=== PATIENT | female | born 1990 | race Caucasian/White ===

== ENCOUNTER 2018-01-13 14:18 | Emergency (ER) | payer OTHER ==
[2018-01-13 14:18] VITALS: BMI 36.9
[2018-01-13 14:29] VITALS: BP 104/70; PULSE 64; RESP 18; TEMP 97.9; O2SAT 99
--- NOTE | 2018-01-13 15:15 | C.PDOC ---
History Of Present Illness 27 y/o female w/o significant PMHx presents to ED for evaluation of cold sx for past weeks associated with nasal congestion, runny nose. Pt reports, developed intermittent frontal headache for "few days". Patient sts, this morning she developed bilateral earache. Otherwise, pt denies high fever, chills, ear discharge, drooling, dysphagia, dyspnea, cough, CP, SOB, wheezing, abd. pain, V/ D, back pain, UTI sx. Ambulate to Ed for evaluation, not in any apparent distress. Time Seen by Provider: 01/13/18 14:33 Chief Complaint (Nursing): ENT Problem History Per: Patient History/Exam Limitations: None Onset/Duration Of Symptoms: Days Current Symptoms Are (Timing): Still Present Quality (Ear): Pain W/Touch. denies: Discharge Past Medical History Reviewed: Historical Data, Nursing Documentation, Vital Signs Vital Signs: Last Vital Signs Temp 97.9 F 01/13/18 14:26 Pulse 64 01/13/18 14:26 Resp 18 01/13/18 14:26 BP 104/70 01/13/18 14:26 Pulse Ox 99 01/13/18 16:58 - Medical History PMH: Asthma Surgical History: No Surg Hx - [facility] Procedures DELIVERY OF PRODUCTS OF CONCEPTION, EXTERNAL APPROACH (02/10/16) DRAINAGE OF AMNIOTIC FL, THERAP FROM POC, VIA OPENING (02/10/16) MONITORING NOS (01/09/13) REPAIR OB LACERATION NEC (04/02/13) Family History: States: No Known Family Hx - Social History Hx Alcohol Use: No Hx Substance Use: No - Immunization History Hx Tetanus Toxoid Vaccination: No Hx Influenza Vaccination: No Hx Pneumococcal Vaccination: No Review Of Systems Constitutional: Negative for: Fever, Chills ENT: Positive for: Ear Pain. Negative for: Ear Discharge Respiratory: Negative for: Cough Skin: Negative for: Rash Physical Exam - Physical Exam Appears: Well, Non-toxic, No Acute Distress Skin: Normal Color, Warm, Dry, No Rash Head: Normacephalic Eye(s): bilateral: PERRL Ear(s): Bilateral: TM Dull Nose: No Flaring, No Discharge, Other (clear post-nasal drip) Oral Mucosa: Moist, No Drooling, Other ((+) paranasal tenderness, frontal sinuses tenderness. no edema, no erythema.) Tongue: Normal Appearing Lips: Normal Appearing Throat: No Erythema, No Drooling Neck: Trachea Midline, Supple Cardiovascular: Rhythm Regular, No Murmur, No JVD Respiratory: No Decreased Breath Sounds, No Accessory Muscle Use, No Stridor, No Wheezing Gastrointestinal/Abdominal: Soft, No Tenderness, No Distention, No Guarding, No Rebound Back: No CVA Tenderness Extremity: Normal ROM, No Deformity, No Swelling Neurological/Psych: Oriented x3, Normal Speech, Normal Motor, Normal Sensation, Normal Reflexes ED Course And Treatment O2 Sat by Pulse Oximetry: 99 Pulse Ox Interpretation: Normal Progress Note: On re-evaluation, pt is afebrile, hemodynamicaly stable. Non- toxic. PulseOx 99% RA. ENT: exam c/w acute sinusitis, serous otitis media B/ L. neck: SUpple, (-) meningeal sign. Lungs: CTA B/L, BS equal B/L. Abd: benign, (-) guarding, (-) rebound. back: (-) CVA tenderness. Neurologicaly intact. Pt advised on course of ds. ref. to f/u with PMD, ENT in 2-3 days for re-evaluation. Disposition Counseled Patient/Family Regarding: Diagnosis, Need For Followup, Rx Given - Disposition Referrals: Cooper Harris MD [Staff Provider] - Disposition: HOME/ ROUTINE Disposition Time: 15:00 Condition: STABLE Additional Instructions: Encourage fluids Take medication as prescribed Follow up with PMD in 2-3 days for re-evaluation. return if any new changes. 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 - Scribe Statement The provider has reviewed the documentation as recorded by the Mattibdevyn Kent All medical record entries made by the Scribe were at my direction and personally dictated by me. I have reviewed the chart and agree that the record accurately reflects my personal performance of the history, physical exam, medical decision making, and the department course for this patient. I have also personally directed, reviewed, and agree with the discharge instructions and disposition.
[2018-01-13] MEDS ORDERED: Amoxicillin-Clav 875-125 mg Tab PO STA (15:28)
[2018-01-13] MEDS ORDERED: Tramadol 25 mg PO STA ×2 (15:28→15:34)
[2018-01-13] MEDS ORDERED: Amoxicillin-Clav 875-125 mg Tab PO ONE (15:34)
== END 2018-01-13 15:52 | disposition home or self-care (01) ==
LOC: C.ER 14:18
DX: H65.93 Unspecified nonsuppurative otitis media, bilateral (principal); J01.90 Acute sinusitis, unspecified

== ENCOUNTER 2018-06-03 11:18 | Emergency (ER) | payer OTHER ==
[2018-06-03 11:19] VITALS: BMI 36.9
[2018-06-03 11:31] VITALS: RESP 20; O2SAT 100
--- NOTE | 2018-06-03 11:35 | C.PDOC ---
History Of Present Illness 27 y/o female with no significant PMH presents to the ED c/o right ankle and foot pain s/p injury last night. Pt states she was taking the trash out when she tripped, rolling her right ankle. Experienced immediate pain and mild swelling to the right lateral foot and ankle. Took tylenol yesterday with mild relief. Able to weight bear, although with pain. Currently using a cane for assistance. Denies numbness, paresthesias, knee pain, hip pain, or any other associated complaints. Time Seen by Provider: 06/03/18 11:32 Chief Complaint (Nursing): Lower Extremity Problem/Injury History Per: Patient History/Exam Limitations: language barrier (translation by nurse Max) Onset/Duration Of Symptoms: Days Current Symptoms Are (Timing): Still Present Severity: Moderate Recent travel outside of the [place]: No Additional History Per: Patient, Family (mother) - Hip Description Of Injury: Tripped - Ankle/Foot Description Of Injury: Twisted Currently Unable To: Bear Weight Alleviating Factor(s): Ice Therapy, OTC Pain Medication (Tylenol) Past Medical History Reviewed: Historical Data, Nursing Documentation, Vital Signs Vital Signs: Last Vital Signs Temp 98.3 F 06/03/18 11:27 Pulse 90 06/03/18 11:27 Resp 20 06/03/18 11:27 BP 95/63 L 06/03/18 11:27 Pulse Ox 100 06/03/18 11:27 - Medical History PMH: Asthma Denies: Chronic Kidney Disease - [facility] Procedures DELIVERY OF PRODUCTS OF CONCEPTION, EXTERNAL APPROACH (02/10/16) DRAINAGE OF AMNIOTIC FL, THERAP FROM POC, VIA OPENING (02/10/16) MONITORING NOS (01/09/13) REPAIR OB LACERATION NEC (04/02/13) Family History: States: Unknown Family Hx - Social History Hx Alcohol Use: No Hx Substance Use: No - Immunization History Hx Tetanus Toxoid Vaccination: No Hx Influenza Vaccination: No Hx Pneumococcal Vaccination: No Review Of Systems Except As Marked, All Systems Reviewed And Found Negative. Constitutional: Negative for: Fever, Chills Cardiovascular: Negative for: Chest Pain Respiratory: Negative for: Shortness of Breath Gastrointestinal: Negative for: Nausea, Vomiting, Abdominal Pain Musculoskeletal: Positive for: Leg Pain (right ankle and foot). Negative for: Neck Pain, Shoulder Pain, Back Pain Skin: Negative for: Lesions, Bruising Neurological: Negative for: Weakness, Numbness Physical Exam - Physical Exam Appears: Well, Non-toxic, No Acute Distress Skin: Normal Color Head: Atraumatic, Normacephalic, No Tenderness, No Swelling, No Abrasion, No Laceration Eye(s): bilateral: Normal Inspection, PERRL, EOMI Nose: Normal Oral Mucosa: Moist Neck: Normal, Normal ROM, No Midline Cervical Tenderness, No Paracervical Tenderness Chest: Symmetrical, No Tenderness Cardiovascular: Rhythm Regular Respiratory: Normal Breath Sounds Gastrointestinal/Abdominal: Normal Exam, Soft, No Tenderness Back: Normal Inspection, No Vertebral Tenderness, No Decreased ROM, No Paraspinal Tenderness Extremity: No Normal ROM (decreased ROM of right ankle secondary to pain), Tenderness ((+) right lateral foot over 4th and 5th metatarsals and right lateral ankle (-) malleolar tenderness), No Pedal Edema, No Calf Tenderness, Capillary Refill (<2s), No Deformity, Swelling (mild over right lateral ankle) Extremity: Left: Atraumatic, Normal ROM, Right: Limited ROM To Joint, Painful To Bear Weight, Bilateral: Normal Color And Temperature Pulses: Left Dorsalis Pedis: Normal, Right Dorsalis Pedis: Normal Neurological/Psych: Oriented x3, Normal Speech, Normal Cognition, Normal Cranial Nerves, Normal Motor, Normal Sensation Gait: With Assistance (steady) ED Course And Treatment O2 Sat by Pulse Oximetry: 100 Orthopedic Time Performed: 12:15 Time Out: Side verified, Site verified, Patient ID confirmed Procedure: Splint Type: Short, Posterior Location: Right, Leg Consent obtained: Verbal Performed by: Mid-level Provider Diagnosis: Sprain Capillary refill: Normal Distal Sensation: Normal Distal Motor Function: Normal Capillary Refill: Normal Compartment: Normal Distal Sensation: Normal Distal Motor Function: Normal Patient tolerated procedure: Well Medical Decision Making Medical Decision Making: Initial Plan: * XR right foot * XR right ankle * Tylenol * POC preg POC preg negative Xrays negative for acute fracture or dislocation as read by me. Patient continues to c/o pain, especially with ambulation. Will splint patient secondary to pain level and difficulty bearing weight/ambulating. Recommend podiatry followup within 2 days. Splinted in short posterior leg splint, right side. Neurovascular exam remains unchanged post-splinting. Normal pulses and sensation bilateral feet. Pt given crutches. Demonstrated appropriate and safe crutch use prior to discharge. Taught by ophthalmic medical technologist. Plan of care discussed with patient, and strict instructions given regarding prescriptions, importance of follow up, and signs to return to Emergency Department, to include numbness, paresthesias, worsening pain, or any other new/worsening symptoms. Patient verbalizes understanding of discussion. Patient A&Ox3, ambulating with steady gait with crutches, stable for discharge home. Disposition - Disposition Referrals: Podiatry Clinic [Outside] Disposition: HOME/ ROUTINE Disposition Time: 12:00 Condition: IMPROVED Additional Instructions: [place], elevar, hielo lesionado tobillo Tylenol para el dolor Usar muletas para caminar Seguimiento con podologa Clinic dentro de 2 [place] Seguimiento con el mdico de cabecera dentro de 2 boykin Volver a ER para cualquier nuevo/empeoramiento de los sntomas Instructions: Ankle Sprain Forms: Gen Discharge Inst [place]an, [email or web address] ([place]an), Work Excuse Print Language: AMHARIC - Clinical Impression Clinical Impression: Ankle injury
[2018-06-03 12:53] VITALS: BP 108/71; PULSE 81; TEMP 99.2
--- NOTE | 2018-06-03 16:09 | RAD ---
Date of service: 06/03/2018 PROCEDURE: Right Ankle Radiographs. HISTORY: lateral foot pain s/p fall yesterday COMPARISON: None available. FINDINGS: BONES: Normal. No fracture. JOINTS: Normal. No osteoarthritis. Ankle mortise maintained. Talar dome intact SOFT TISSUES: Normal. OTHER FINDINGS: None. IMPRESSION: Normal right ankle radiographs.
--- NOTE | 2018-06-03 16:10 | RAD ---
Date of service: 06/03/2018 PROCEDURE: Right Foot Radiographs. HISTORY: lateral foot pain s/p fall yesterday COMPARISON: None. FINDINGS: BONES: Normal. No fracture. JOINTS: Normal. SOFT TISSUES: Normal. OTHER FINDINGS: None. IMPRESSION: Normal right foot radiographs.
== END 2018-06-03 12:52 | disposition home or self-care (01) ==
LOC: C.ER 11:18
DX: S93.401A Sprain of unspecified ligament of right ankle, initial encounter (principal); W01.0XXA Fall on same level from slipping, tripping and stumbling without subsequent striking against object, initial encounter; Y93.89 Activity, other specified